=== PATIENT | female | born 1975 | race Caucasian/White ===

== ENCOUNTER 2020-08-14 18:53 | Emergency (ER) | payer OTHER | END 2020-08-14 22:40 | disposition home or self-care (01) | LOC: ER1 18:53 | DX: S46.912A Strain of unspecified muscle, fascia and tendon at shoulder and upper arm level, left arm, initial encounter (principal); X58.XXXA Exposure to other specified factors, initial encounter | CPT/HCPCS: 73030; 99283 ==

== ENCOUNTER 2021-06-07 15:55 | Emergency (ER) | payer SELFPAY ==
[2021-06-07 20:26] LABS: HEMOGLOBIN 15.3 gm/dl (12.3-15.3); RED BLOOD COUNT 4.98 M/UL (4.00-5.10); WHITE BLOOD COUNT 9.5 K/UL (4.5-11.0)
[2021-06-07 20:53] LABS: BUN/CREATININE RATIO 25 (0-10)
[2021-06-07] MEDS ORDERED: IBUPROFEN800 MG PO (21:38)
== END 2021-06-07 21:45 | disposition home or self-care (01) ==
LOC: ER1 15:55
PROVIDERS: Physician Assistant
DX: S39.011A Strain of muscle, fascia and tendon of abdomen, initial encounter (principal); F17.210 Nicotine dependence, cigarettes, uncomplicated; X58.XXXA Exposure to other specified factors, initial encounter
CPT/HCPCS: 36415; 80053; 83690; 85025; 99284; Q9967

== ENCOUNTER → 2021-10-11 | Outpatient (CLI) | payer OTHER ==
[~2021-10-11] MED LIST: IBUPROFEN800 MG PO
== END ==
LOC: KOH-I 13:17
DX: M47.26 Other spondylosis with radiculopathy, lumbar region (principal)
CPT/HCPCS: 72100